=== PATIENT | male | born 1990 | race Caucasian/White ===

== ENCOUNTER 2018-02-20 19:55 | Emergency (ER) | payer BC ==
[2018-02-20 20:09] VITALS: BP 127/85
--- NOTE | 2018-02-20 20:27 | ED ---
HPI Chest Pain - HPI Summary HPI Summary: Patient is a 27 y/o male here c/o of left upper chest pain for the last 2 weeks. He developed this chest pain after he was working out and he felt this pain. He whent to the [facility] where they did an EKG and CXR and he was diagnosed with chest wall pain and he was given Naproxen for the pain. He has had some relief but every time he moves his left arm the pain worsens. Pain is sharp and can go up to 7/10/ At rest he has no pain. He denies any SOB, dizziness or any other complaint. He al no PMH or surgical Hx. - History of Current Complaint Chief Complaint: UCGeneralIllness Time Seen by Provider: 02/20/18 20:09 Timing: Intermittent Initial Severity: Mild Current Severity: None Pain Intensity: 0 - Allergy/Home Medications Allergies/Adverse Reactions: Allergies Allergy/AdvReac Type Severity Reaction Status Date / Time No Known Allergies Allergy Verified 02/20/18 20:09 Home Medications: Home Medications NK [No Home Medications Reported] 02/20/18 [History Confirmed 02/20/18] PMH/Surg Hx/FS Hx/Imm Hx Infectious Disease History: No Infectious Disease History: Denies: Traveled Outside the [place] in Last 30 Days - Social History Alcohol Use: Occasionally Substance Use Type: Reports: None Smoking Status (MU): Never Smoked Tobacco Review of Systems Constitutional: Negative Eyes: Negative ENT: Negative Positive: Other - Chest wall pain Respiratory: Negative Gastrointestinal: Negative Genitourinary: Negative Positive: Myalgia Skin: Negative Neurological: Negative Psychological: Normal All Other Systems Reviewed And Are Negative: Yes Physical Exam - Summary Physical Exam Summary: VITAL SIGNS: Reviewed. GENERAL: Patient is a well developed and nourished male who is sitting comfortable in the stretcher. Patient is not in any acute respiratory distress. HEAD AND FACE: Normacephalic and atraumatic. EYES: PERRLA, EOMI x 2, EARS: Hearing grossly intact. MOUTH: Oropharynx within normal limits. NECK: Supple, trachea is midline, no adenopathy, no JVD, no carotid bruit, no c- spine tenderness, neck with full ROM. CHEST: Symmetric, no tenderness at palpation LUNGS: CTA B/L. No wheezing or crackles. CVS: RRR, S1 and S2 present, no murmurs or gallops appreciated. ABDOMEN: Soft, NT, No distention. Normal BS. EXTREMITIES: FROM in all major joints, no edema, no cyanosis or clubbing. NEURO: Alert and oriented x 3. No acute neurological deficits. Speech is normal and follows commands. SKIN: Dry and warm Triage Information Reviewed: Yes Vital Signs On Initial Exam: Initial Vitals Temp Pulse Resp BP Pulse Ox 98.3 F 81 18 127/85 100 02/20/18 20:05 02/20/18 20:05 02/20/18 20:05 02/20/18 20:05 02/20/18 20:05 Vital Signs Reviewed: Yes Diagnostics - Vital Signs Vital Signs Temp Pulse Resp BP Pulse Ox 02/20/18 20:05 98.3 F 81 18 127/85 100 - Laboratory Lab Statement: Any lab studies that have been ordered have been reviewed, and results considered in the medical decision making process. Chest Pain Course/Dx - Course Assessment/Plan: Patient had a CXR and EKG with normal result 1 week ago. He does not want any work up only request a orthopedic referral. The physical exam reveals normal examination. I believe he has Chest wall pain. I will not repeat a CXR or EKG since he had them less than one week ago. He was given a referral for orthopedics. He was requested if symptom worsen he should return to the or go to the ED. He understands and agrees - Diagnoses Provider Diagnoses: Chest wall pain Discharge - Sign-Out/Discharge Documenting (check all that apply): Discharge/Admit/Transfer - Discharge Plan Condition: Stable Disposition: HOME Patient Education Materials: Chest Wall Pain (ED) Referrals: No Primary Care Phys,NOPCP [Primary Care Provider] - Michael Arcos DO [Doctor of Osteopathy] - Additional Instructions: Increase your fluid intake Return to the if symptoms worsen - Billing Disposition and Condition Condition: STABLE Disposition: HOME
== END 2018-02-20 20:28 | disposition home or self-care (01) ==
LOC: UCEAST 19:55
DX: R07.89 Other chest pain (principal); M79.1 Myalgia
CPT/HCPCS: 99201; G0463

== ENCOUNTER 2018-04-26 11:09 | Emergency (ER) | payer BC ==
--- NOTE | 2018-04-26 11:12 | UC ---
Throat Pain/Nasal Reginald HPI - HPI Summary HPI Summary: 28 yo male presents with sore throat for the last week and sinus pain/pressure/ congestion for the last 3 days. He has been taking ibuprofen for his discomfort with mild relief. Denies fever, chills, cough, SOB, chest pain, or rash. - History of Current Complaint Stated Complaint: SORE THROAT,CONGESTED Time Seen by Provider: 04/26/18 11:10 Hx Obtained From: Patient Onset/Duration: Gradual Onset Severity: Moderate Pain Intensity: 8 Pain Scale Used: 0-10 Numeric - Allergies/Home Medications Allergies/Adverse Reactions: Allergies Allergy/AdvReac Type Severity Reaction Status Date / Time No Known Allergies Allergy Verified 04/26/18 11:19 Home Medications: Home Medications Phenylephrine/Dm/Acetaminop/GG [Mucinex Jrnr-Wxt-Friejgeles Lq] 177 ml PO ONCE 04/26/18 [History Confirmed 04/26/18] PMH/Surg Hx/FS Hx/Imm Hx - Additional Past Medical History Additional PMH: None Previously Healthy: Yes - Surgical History Surgical History: None - Family History Known Family History: Positive: None - Social History Occupation: Employed Full-time Lives: With Family Alcohol Use: Occasionally Substance Use Type: None Smoking Status (MU): Never Smoked Tobacco Review of Systems Constitutional: Negative Skin: Negative Eyes: Negative ENT: Sore Throat, Nasal Discharge, Sinus Congestion, Sinus Pain/Tenderness Respiratory: Negative Cardiovascular: Negative Gastrointestinal: Negative Neurovascular: Negative Neurological: Negative Psychological: Negative All Other Systems Reviewed And Are Negative: Yes Physical Exam - Summary Physical Exam Summary: GENERAL: NAD. WDWN. No pain distress. SKIN: No rashes, sores, lesions, or open wounds. HEENT: Head: AT/NC Eyes: EOM intact. Conjunctiva clear without inflammation or discharge. Ears: Hearing grossly normal. TMs intact, no bulging, erythema, or edema. Nose: Nasal mucosa pink and moist. NTTP maxillary and frontal sinus. Throat: Posterior oropharynx mild erythema and 2+ tonsillar enlargement. No exudates. Uvula midline. No hoarse voice or muffled voice. NECK: Supple. Nontender. No lymphadenopathy. CHEST: CTAB. No r/r/w. No accessory muscle use. Breathing comfortably and in no distress. CV: RRR. Without m/r/g. Pulses intact. Brisk cap refill. NEURO: Alert. CN II-XII grossly intact. PSYCH: Age appropriate behavior. Triage Information Reviewed: Yes Vital Signs: Vital Signs: Temp Pulse Resp BP Pulse Ox 98.8 F 81 16 147/78 98 04/26/18 11:20 04/26/18 11:20 04/26/18 11:20 04/26/18 11:20 04/26/18 11:20 Throat Pain/Nasal Course/Dx - Course Course Of Treatment: POC strep negative. Suspect pharyngitis and sinusitis. Rx for amoxicillin - Differential Dx/Diagnosis Provider Diagnoses: Pharyngitis. Sinusitis Discharge - Sign-Out/Discharge Documenting (check all that apply): Patient Departure - Discharge Plan Condition: Stable Disposition: HOME Prescriptions: Amoxicillin PO (*) [Amoxicillin 500 MG CAP*] 500 mg PO Q12H #14 cap Patient Education Materials: Pharyngitis (ED) Referrals: No Primary Care Phys,NOPCP [Primary Care Provider] - Additional Instructions: If you develop a fever, shortness of breath, chest pain, new or worsening symptoms - please call your PCP or go to the ED. Your blood pressure was high at todays visit. Please see your primary provider within 4 weeks for recheck and re-evaluation. - Billing Disposition and Condition Condition: STABLE Disposition: Home
[2018-04-26 11:25] VITALS: BP 147/78
== END 2018-04-26 11:30 | disposition home or self-care (01) ==
LOC: UCEAST 11:09
DX: J02.9 Acute pharyngitis, unspecified (principal); J32.9 Chronic sinusitis, unspecified
CPT/HCPCS: 87651; 99212; G0463

== ENCOUNTER 2019-04-04 13:30 | Emergency (ER) | payer BC ==
[2019-04-04 13:47] VITALS: BP 133/79
--- NOTE | 2019-04-04 13:49 | UC ---
Throat Pain/Nasal Reginald HPI - HPI Summary HPI Summary: 29 y/o male presents to the urgent care c/o hoarseness, sinus congestion, GREEN, sore throat since Thursday04/01/2019. He developed mild diarrhea for the past 2 days. Pt w/ Hx of seasonal allergies taking Loratadine PO. Today sore throat and GREEN is 4/10 associated w/ mild dry cough and clear PND. He has not taken any medication to alleviate symptoms today. He denies dizziness, SOB, fever, abdominal pain, chest pain, N/V/D. \ - History of Current Complaint Chief Complaint: UCGeneralIllness Stated Complaint: SORE THROAT Time Seen by Provider: 04/04/19 13:48 Hx Obtained From: Patient Onset/Duration: Gradual Onset, Lasting Days - 3 days, Still Present, Worse Since - this morning. Pt couldn't sleeps last night well, feels fatigue Severity: Moderate Pain Intensity: 4 - sore throat and GREEN Pain Scale Used: 0-10 Numeric Cough: Nonproductive Associated Signs & Symptoms: Positive: Hoarseness, Sinus Discomfort, Nasal Discharge - clear. Negative: Wheezing, Fever Related History: Seasonal Allergies - Epiglottits Risk Factors Epiglottis Risk Factors: Negative - Allergies/Home Medications Allergies/Adverse Reactions: Allergies Allergy/AdvReac Type Severity Reaction Status Date / Time No Known Allergies Allergy Verified 04/04/19 13:42 Home Medications: Home Medications Loratadine [Claritin 10 MG CAP] 10 mg PO DAILY 04/04/19 [History Confirmed 04/04] PMH/Surg Hx/FS Hx/Imm Hx Previously Healthy: Yes - Pt denies PMHX - Surgical History Surgical History: None - Family History Known Family History: Positive: None - Pt denies PMHX - Social History Occupation: Employed Full-time Lives: With Family Alcohol Use: None Substance Use Type: None Smoking Status (MU): Never Smoked Tobacco Review of Systems All Other Systems Reviewed And Are Negative: Yes Constitutional: Positive: Fatigue Skin: Positive: Negative Eyes: Positive: Negative ENT: Positive: Sore Throat, Nasal Discharge - clear, Sinus Congestion, Other - hoarseness Respiratory: Positive: Cough - dry Cardiovascular: Positive: Negative Gastrointestinal: Positive: Diarrhea Genitourinary: Positive: Negative Motor: Positive: Negative Neurovascular: Positive: Negative Musculoskeletal: Positive: Negative Neurological: Positive: Headache Psychological: Positive: Negative Is Patient Immunocompromised?: No Physical Exam - Summary Physical Exam Summary: VITAL SIGNS: Reviewed. GENERAL: Patient is a well developed and nourished male who is sitting comfortably in the examining table. Patient is not in any acute respiratory distress. HEAD AND FACE: No signs of trauma. No ecchymosis, hematomas or skull depressions. No sinus tenderness. EYES: PERRLA, EOMI x 2, No injected conjunctiva, no nystagmus. No photophobia. EARS: Hearing grossly intact. Ear canals and tympanic membranes are within normal limits. MOUTH: Positive pharynx with mild erythema, no exudates, No B/L tonsillar enlargement , no exudate. Uvula in midline. edematous nasal mucosa w/ clear nasal discharge, clear PND NECK: Supple, trachea is midline, Positive anterior cervical lymphadenopathy, no JVD, no carotid bruit, no c-spine tenderness, neck with full ROM. No meningeal signs, no Kernig's or brudzinskis signs. CHEST: Symmetric, no tenderness at palpation LUNGS: Clear to auscultation bilaterally. No wheezing or crackles. CVS: Regular rate and rhythm, S1 and S2 present, no murmurs or gallops appreciated. Abdomen Description: Positive: Nontender, Other: - Abd: Flat with no distention. No surface trauma, scars, incisions. hyperactive bowel sounds present in all four quadrants. No tenderness, guarding, rigidity to palpation. No masses palpated, no pulsation in epigastric area. No organomegaly. Negative Hudson signs. No periumbilical tenderness. No rebound in the lower quadrants. NT over McBurneys point. Good femoral pulses bilaterally. No hernia noted. No CVAT bilaterally EXTREMITIES: FROM in all major joints, no edema, no cyanosis or clubbing. NEURO: Alert and oriented x 3. No acute neurological deficits. Pt follows commands. SKIN: Dry and warm Triage Information Reviewed: Yes Vital Signs: Initial Vital Signs Temp 98 F 04/04/19 13:43 Pulse 89 04/04/19 13:43 Resp 18 04/04/19 13:43 BP 133/79 04/04/19 13:43 Pulse Ox 99 04/04/19 13:43 Throat Pain/Nasal Course/Dx - Course Course Of Treatment: 29 y/o male presents to the urgent care c/o hoarseness, sinus congestion, GREEN, sore throat since Thursday04/01/2019. He developed mild diarrhea for the past 2 days. Pt w/ Hx of seasonal allergies taking Loratadine PO. Today sore throat and GREEN is 4/10 associated w/ mild dry cough and clear PND. He has not taken any medication to alleviate symptoms today. He denies dizziness, SOB, fever, abdominal pain, chest pain, N/V/D. Pt is hemodynamically stable, no sings of dehydration Vitals: WNL. Pt w/ laryngitis and rhinosinusitis on examination. Rapid strep: negative. advised to increase fluid intake, eat soft meals, rest. TAke Imodium if diarrhea doesn't improve. However if symptoms worsen and abdominal pain develops to go Immediately to the ER for further management. Also advised to continue w/ Loratadine PO and use the Flonase nasal spray he has at home. Pt explained D/C instructions. Pt understood and agreed w/ plan of care. Pt left the clinic ambulating, A&OX3 \ - Differential Dx/Diagnosis Differential Diagnosis/HQI/PQRI: Laryngitis, Mononucleosis, Peritonsillar Abscess, Pharyngitis, Tonsillitis, URI Provider Diagnosis: Laryngitis, Diarrhea, Rhinosinusitis Discharge - Sign-Out/Discharge Documenting (check all that apply): Patient Departure - d/C home All imaging exams completed and their final reports reviewed: No Studies - Discharge Plan Condition: Stable Disposition: HOME Patient Education Materials: Laryngitis (ED), Acute Diarrhea (ED) Referrals: [facility] [Outside] Additional Instructions: 1- Please increase fluid intake. Take Pedialyte or Gatorade. Avoid strenuous exercise, eat soft meals and rest. Take Imodium if diarrhea worsens. 2- If he develops fever or abdominal pain w/ recurrent episodes of diarrhea please take your child to the ER, otherwise f/u with your PCP if diarrhea not resolving in 2-3 days 3- Use Flonase nasal spray you have at home as directed to help drain fluid. Also buy saline drops to clear sinuses 4-Continue taking Loratadine PO to alleviates sinus congestion. Take Ibuprofen PO q6-8hrs prn after meals to alleviate GREEN, sore throat and swelling. 5-F/u w/ your PCP if symptoms do not improve for further management and treatment - Billing Disposition and Condition Condition: STABLE Disposition: Home
== END 2019-04-04 14:27 | disposition home or self-care (01) ==
LOC: UCEAST 13:30
DX: J04.0 Acute laryngitis (principal); R19.7 Diarrhea, unspecified; J32.9 Chronic sinusitis, unspecified
CPT/HCPCS: 87651; 99211; G0463